=== PATIENT | female | born 2000 | race Caucasian/White ===

== ENCOUNTER 2018-08-11 07:35 | Day surgery (SDC) | payer BC ==
[~2018-08-11] VITALS: Ht 154.9 cm; Wt 101.6 kg
[~2018-08-11 07:35] MED LIST: LOESTRIN FE PO; NARA2.5 PO; OMEPRAZOLE MAGN20 MG PO
--- NOTE | 2018-08-11 07:57 | NUR ---
Ambulatory in Day Surgery History, Chart, Medications and Allergies reviewed before start of procedure.Lungs clear T/O to Auscultation. Patient confirms NPO status and agrees with scheduled surgery. Pre-Op teaching done. Pt verbalizes understanding.
--- NOTE | 2018-08-11 08:39 | NUR ---
MOTHER BROUGHT BACK TO BEDSIDE. SECOND RN ATTEMPTING IV. PT TEARFUL. PT HAD STATED THAT SHE IS A HARD IV STICK. RN (SHARATH) USING US TO TRY AND GET IV ACCESS.
--- NOTE | 2018-08-11 08:48 | NUR ---
RN (SHARATH) WAS ABLE TO PLACE IV TO RT FA. PT IS DOING WELL. NO COMPLAINTS AT THIS TIME. MOTHER AT BEDSIDE. BLOOD SAMPLE SENT TO LAB FOR HCG.
--- NOTE | 2018-08-11 09:02 | NUR ---
REPORT GIVEN TO LARON DICKERSON. SHE WILL ASSUME CARE OF PT
--- NOTE | 2018-08-11 09:05 | NUR ---
PT REPORT FROM CHAVEZ DICKERSON. PT RESTING COMFORTABLY WITH MOM AT BEDSIDE.
--- NOTE | 2018-08-11 09:31 | NUR ---
PT BLOOD SAMPLE FOR HCG HEMOLYZED PER LAB DEPT. OPENED UP LR AND PT WAS ABLE TO VOID ENOUGH FOR TEST. EMOTIONAL SUPPORT PROVIDED. PT TEARFUL.
--- NOTE | 2018-08-11 09:52 | NUR ---
08/11/18 0952 Leanne Molina KAUR CATH PLACED BY DR MOCTEZUMA AT PROCEDURE START.
--- NOTE | 2018-08-11 10:57 | NUR ---
ARRIVED FROM PACU TO STEP VSS ENCOURAGED TO DEEP BREATH TO MAINTAIN SAT ABOVE 90%
--- NOTE | 2018-08-11 11:08 | NUR ---
PARENTS AT BEDSIDE
--- NOTE | 2018-08-11 11:21 | NUR ---
WENT OVER DISCHARGE INSTRUCTIONS WITH PARENTS AND PATIENT, ALL QUESTIONS ANSWERED. PATIENT GETTING DRESSED AT THIS TIME.
== END 2018-08-11 22:43 | disposition home or self-care (01) ==
LOC: ORSCMMR 07:35 → ORD 09:15 → ORSCMMR 09:15 → ORD 10:15 → ORSCMMR 22:43
PROVIDERS: Obstetrics & Gynecology
PROC: 0UBK7ZZ Excision of Hymen, Via Natural or Artificial Opening (ICD-10-PCS; principal; 2018-08-11 09:15)
DX: N89.5 Stricture and atresia of vagina (principal); N89.6 Tight hymenal ring; K21.9 Gastro-esophageal reflux disease without esophagitis; M41.9 Scoliosis, unspecified; E66.01 Morbid (severe) obesity due to excess calories; Z68.41 Body mass index [BMI] 40.0-44.9, adult; Z79.899 Other long term (current) drug therapy
CPT/HCPCS: J1100; J1885; J2250; J2405; J3010; J7120

== ENCOUNTER → 2019-01-19 | Outpatient (CLI) | payer OTHER, BC ==
[2019-01-21 02:09] LABS: HBSAG SCREEN Negative (Negative); HCV ANTIBODY <0.1 (0.0-0.9); HIV SCREEN 4TH GENERATION WRFX Non Reactive (Non Reactive)
== END | disposition home or self-care (01) ==
LOC: LAB EV 16:28 → LAB SHORT 16:28
PROVIDERS: Family Medicine
DX: Z20.9 Contact with and (suspected) exposure to unspecified communicable disease (principal)
CPT/HCPCS: 84460

== ENCOUNTER → 2019-02-20 | Outpatient (CLI) | payer OTHER, BC ==
[2019-02-21 03:07] LABS: HIV SCREEN 4TH GENERATION WRFX Non Reactive (Non Reactive)
== END | disposition home or self-care (01) ==
LOC: LAB SHORT 09:32 → LAB EV 09:32
PROVIDERS: Physician Assistant
DX: Z20.9 Contact with and (suspected) exposure to unspecified communicable disease (principal)
CPT/HCPCS: 86803; 87389

== ENCOUNTER → 2019-04-22 | Outpatient (CLI) | payer BC ==
[2019-04-24 09:07] LABS: HIV SCREEN 4TH GENERATION WRFX Non Reactive (Non Reactive)
== END | disposition home or self-care (01) ==
LOC: LAB SHORT 13:50 → LAB EV 13:50
PROVIDERS: General Practice
DX: Z20.9 Contact with and (suspected) exposure to unspecified communicable disease (principal)
CPT/HCPCS: 87389

== ENCOUNTER → 2019-07-03 | Outpatient (CLI) | payer BC | END | disposition home or self-care (01) | LOC: LAB 10:12 → LAB SHORT 10:12 | DX: D22.71 Melanocytic nevi of right lower limb, including hip (principal) | CPT/HCPCS: 88305 ==

== ENCOUNTER → 2024-07-21 | Outpatient (CLI) | payer BC ==
[~2024-07-21] MED LIST changes: +AMIT25 PO; +ASPI81CH PO; +CYCL10 PO; +LARIN 1.5 MG-31 EAC1 PO; +LEVSOD25 PO; +METO25ER PO; +NAPR500 PO; +OMEP20ER PO; +Phentermine HCl30 MG PO; +RIZATRIPTAN10 MG SL
== END ==
LOC: LAB 11:58 → LAB SHORT 11:58
PROVIDERS: Family Medicine
DX: Z12.4 Encounter for screening for malignant neoplasm of cervix (principal)
CPT/HCPCS: G0123